=== PATIENT | female | born 1940 | race Caucasian/White ===

== ENCOUNTER → 2019-10-15 12:42 | Outpatient (BNVA) | payer MEDICARE, OTHER, SELFPAY | PROVIDERS: Referring Provider Dermatology; Visit Provider Dermatology | DX: D48.9 Neoplasm of uncertain behavior, unspecified (principal); B35.1 Tinea unguium; L82.1 Other seborrheic keratosis; L57.0 Actinic keratosis | CPT/HCPCS: 11102; 11103; 17004; 88304; 88305; 99203; 99204 ==

== ENCOUNTER → 2023-06-14 13:30 | Outpatient (BNVA) | payer MEDICARE, OTHER, SELFPAY | PROVIDERS: Visit Provider Dermatology | DX: D48.5 Neoplasm of uncertain behavior of skin (principal); L57.0 Actinic keratosis; L81.4 Other melanin hyperpigmentation; L82.1 Other seborrheic keratosis | CPT/HCPCS: 17000; 69100; 99204 ==

== ENCOUNTER → 2023-12-19 10:10 | Outpatient (BNVA) | payer MEDICARE, OTHER, SELFPAY | PROVIDERS: Visit Provider Nurse Practitioner Family | DX: L57.0 Actinic keratosis (principal); L81.4 Other melanin hyperpigmentation; L57.8 Other skin changes due to chronic exposure to nonionizing radiation; L91.8 Other hypertrophic disorders of the skin | CPT/HCPCS: 17000; 99213 ==

== ENCOUNTER → 2024-04-10 11:23 | Outpatient (BNVA) | payer MEDICARE, OTHER, SELFPAY | PROVIDERS: Visit Provider Podiatrist Foot & Ankle Surgery | DX: M79.671 Pain in right foot (principal); M79.672 Pain in left foot; B35.1 Tinea unguium; M20.41 Other hammer toe(s) (acquired), right foot; M19.072 Primary osteoarthritis, left ankle and foot; M19.071 Primary osteoarthritis, right ankle and foot; M20.11 Hallux valgus (acquired), right foot | CPT/HCPCS: 73630; 99203 ==

== ENCOUNTER → 2024-07-26 08:53 | Outpatient (BNVA) | payer MEDICARE, OTHER, SELFPAY | PROVIDERS: Visit Provider Nurse Practitioner Family | DX: L81.4 Other melanin hyperpigmentation (principal); L57.8 Other skin changes due to chronic exposure to nonionizing radiation; L82.1 Other seborrheic keratosis; L82.0 Inflamed seborrheic keratosis; R20.8 Other disturbances of skin sensation; R23.8 Other skin changes; L53.8 Other specified erythematous conditions; L29.89 Other pruritus; L57.0 Actinic keratosis; X32.XXXA Exposure to sunlight, initial encounter | CPT/HCPCS: 17000; 17110; 99213 ==